=== PATIENT | female | born 1935 | race Caucasian/White ===

== ENCOUNTER 2016-10-01 08:31 | Emergency (ER) | payer MEDICARE, BC ==
[2016-10-01] MEDS ORDERED: diphenhydrAMINE HCL 50 MG/ML VIAL IV ONE (09:02)
[2016-10-01] MEDS ORDERED: FAMOTIDINE 10 MG/ML VIAL IV ONE ×2 (09:02→09:21)
[2016-10-01] MEDS ORDERED: METHYLPREDNISOLONE SOD SUCC/PF 40 MG/ML VIAL IV ONE (09:02)
--- NOTE | 2016-10-01 09:06 | ERNOTE ---
Integumentary HPI - General Presenting Symptoms: rash Time Seen by Provider: 10/01/16 08:51 Source: patient Exam Limitations: no limitations - Immun/Allergies/Home Medications Immunizations: IMMUNIZATION HX Immunizations Up to Date No History of Influenza Vaccine No Hx Pneumococcal Vaccination No Allergies/Adverse Reactions: Allergies Allergy/AdvReac Type Severity Reaction Status Date / Time Sulfa (Sulfonamide Allergy Intermediate Hives Verified 10/01/16 08:51 Antibiotics) Home Medications: HOME MEDICATIONS Simvastatin [Zocor] 80 mg PO DAILY 07/26/13 [Last Taken Unknown] Aspirin 81 mg PO DAILY 09/25/15 [Last Taken Unknown] Amlodipine Besylate 10 mg PO DAILY #30 tablet 10/01/16 [Last Taken Unknown] Famotidine [Pepcid] 20 mg PO BID #10 tablet 10/01/16 [Last Taken Unknown] Lisinopril [Prinivil] 10 mg PO 10/01/16 [Last Taken Unknown] hydrOXYzine PAMOATE [Vistaril] 25 mg PO TID PRN #15 capsule 10/01/16 [Last Taken Unknown] predniSONE [Deltasone] 20 mg PO BID #10 tablet 10/01/16 [Last Taken Unknown] - History of Present Illness Narrative: Patient presents with an urticarial rash on both thighs and hands and forearm.. Onset of symptoms was over the past several days and she states it is quite pruritic. Unknown cause of action patient states she was not working out in the [employer] and cannot identify any new allergens that she might been exposed to. Location: Reports: other Quality: Reports: itching Severity: moderate - as noted Exposure: Reports: no cause identified Modifying Factors - (Improves): Reports: nothing Modifying Factors - (Worsens): Reports: nothing Associated Symptoms: Reports: hives Review of Systems - Review of Systems Constitutional: Present: See HPI EYE: Present: no symptoms reported ENT: Present: no symptoms reported Respiratory: Present: no symptoms reported Cardiology: Present: no symptoms reported Gastrointestinal/Abdominal: Present: no symptoms reported Genitourinary: Present: no symptoms reported Musculoskeletal: Present: no symptoms reported Skin: Present: See HPI Neurological: Present: no symptoms reported Endocrine: Present: no symptoms reported Hematologic/Lymphatic: Present: no symptoms reported Psych: Present: no symptoms reported - Patient's Past Medical History Patient History - Medical: No pertinent hx Patient History - Cardiac/Respiratory: Hypertension, Hyperlipidemia Patient History - Cancer: No Hx of Cancer Patient History - Surgical Procedures: T & A Patient History - Other: None - Social History Living Situations: spouse Psych History: No pertinent hx Smoking Status: Former smoker Have you smoked in the past 12 months: No Do you dip or chew tobacco: No Alcohol Use: none Drug Use: none - Immunizations Immunizations Up to Date: No Hx Pneumococcal Vaccination: No History of Influenza Vaccine: No Physical Exam - Physical Exam General Appearance: Present: wd/wn, alert, moderate distress Head Exam: Present: normal inspection, no evidence of injury Eye Exam: Normal inspection: bilateral, PERRL: bilateral Ears, Nose, Throat: Present: normal ENT inspection, H, normal pharynx Neck: Present: normal inspection, nontender Respiratory: Present: no respiratory distress, normal breath sounds, no accessory muscle use, chest nontender, lungs clear Cardiovascular/Chest: Present: regular rate, rhythm, no murmur, normal peripheral pulses Gastrointestinal/Abdominal: Present: normal bowel sounds, nontender, nondistended, soft, no organomegaly Rectal Exam: Present: deferred Back Exam: Present: normal inspection, normal range of motion Extremity Exam: Present: normal inspection, non-tender, no edema, normal range of motion Neurological Exam: Present: alert, oriented, normal mood/affect Skin Exam: Present: skin rash - urticarial rashes noted on thighs hands and forearms Lymphatic Exam: Present: no adenopathy ED Progress - Results and Orders Patient's Lab Results:: I have reviewed the patient's lab results. - Vital Signs Patient's Vital Signs:: I have reviewed the patient's vital signs. Vital Signs: Vital Signs 10/01/16 08:42 Temperature 36.2 C L Pulse Rate 55 L Respiratory 14 Rate Blood Pressure 222/90 O2 Sat by Pulse 99 Oximetry - Progress/Reassessment Chief Complaint: Rash Progress:: Improved Plan - Plan Plan: I suspect that the patient is having a photosensitivity reaction from the lisinopril. Patient was given IV hydralazine site Medrol Pepcid and Benadryl and the rash resolved and her blood pressure improved. Patient will be changed over to amlodipine and she will stop the lisinopril, she will also be treated with Pepcid and Vistaril and prednisone in the outpatient and she will follow- up with her family physician Dr. Rodriguez within 1 week. Departure Clinical Impression: Urticaria due to drug allergy Hypertension Qualifiers: Hypertension type: essential hypertension Qualified Code(s): I10 - Essential ( primary) hypertension - Departure Disposition: Home self-care Condition: Good Instructions: Hives, [id number], Hypertension, [id number] Referrals: Bert Rodriguez DO [Primary Care Provider] - Prescriptions: Amlodipine Besylate 10 mg PO DAILY #30 tablet Famotidine [Pepcid] 20 mg PO BID #10 tablet hydrOXYzine PAMOATE [Vistaril] 25 mg PO TID PRN #15 capsule PRN Reason: Allergic Reaction predniSONE [Deltasone] 20 mg PO BID #10 tablet
[2016-10-01 09:21] LABS: Hematocrit 40.9 % (37.0-47.0); Hemoglobin 13.6 gm/dL (12.5-16.0); Mean Cell Volume 92.7 fl (78-100); Mean Corpuscular Hemoglobin 30.8 pg (27-31); Mean Corpuscular Hgb Conc 33.3 g/dl (32-36); Mean Platelet Volume 10.4 fl (6.0-9.5); Neutrophil # 2.8 K/mm3 (1.3-6.0); Neutrophil % 55.2 % (42-75.0); Platelet Count 237 K/mm3 (150-450); Red Blood Count 4.41 M/mm3 (4.2-5.4); Red Cell Distribution Width 12.4 % (11.5-14.0); White Blood Count 5.1 K/mm3 (4.0-10.5)
[2016-10-01] MEDS ORDERED: METHYLPREDNISOLONE SOD SUCC/PF 40 MG/ML VIAL ONE ×2 (09:21→09:27)
[2016-10-01] MEDS ORDERED: diphenhydrAMINE HCL 50 MG/ML VIAL ONE (09:21)
[2016-10-01] MEDS ORDERED: hydrALAZINE HCL 20 MG/ML VIAL IV ONE (09:31)
[2016-10-01 09:32] LABS: ALT 24 U/L (19-67); AST 23 U/L (0-48); Albumin * 4.2 gm/dl (3.4-5.0); Alkaline Phosphatase * 78 U/L (50-170); Anion Gap 11.3 mmol/L (6.8-13.8); Bilirubin, Total 1.2 mg/dL (0.0-1.1); Blood Urea Nitrogen 17 mg/dL (3-23); Ca. Corrected For Albumin 8.5 mg/dL (8.4-10.2); Carbon Dioxide 29.6 mmol/L (24-32.6); Chloride 105 mmol/L (97-106); Glucose * 95 mg/dL (70-110); Magnesium 1.9 mg/dL (1.2-2.8); Potassium 3.9 mmol/L (3.4-4.6); Sodium 142 mmol/L (132-142); Total Protein 7.8 gm/dL (6.2-8.2)
[2016-10-01] MEDS ORDERED: hydrALAZINE HCL 20 MG/ML VIAL ONE (09:32)
[2016-10-01 10:28] VITALS: BP 195/72
[2016-10-01] MEDS ORDERED: amLODIPine BESYLATE 10 MG TABLET PO ONE (10:30)
== END 2016-10-01 10:26 | disposition home or self-care (01) ==
LOC: ER 08:31
DX: L50.0 Allergic urticaria (principal); I10 Essential (primary) hypertension; Z87.891 Personal history of nicotine dependence